=== PATIENT | male | born 1970 | race Caucasian/White ===

== ENCOUNTER 2023-07-03 20:42 | Outpatient (CLI) | payer MEDICARE, MEDICAID, SELFPAY | END 2023-07-03 20:43 | disposition home or self-care (01) | LOC: SLEEP 20:43 | PROVIDERS: PCP Family Medicine; Visit Provider Internal Medicine | DX: G47.10 Hypersomnia, unspecified (principal); G25.81 Restless legs syndrome | CPT/HCPCS: 95810 ==

== ENCOUNTER 2024-10-17 08:25 | Outpatient (CLI) | payer MEDICARE, MEDICAID, SELFPAY ==
--- NOTE | 2024-10-17 09:28 | P.ANES_ITS ---
Anesthesia Charges Start Date/Time Anesthesia Start Date: 10/17/24 Anesthesia Start Time: 08:53 Stop Date/Time Anesthesia Stop Date: 10/17/24 Anesthesia Stop Time: 09:24 Coding CPT Codes CPT Codes: ANES LWR INTST SCR COLSC - 21614 ([id number]) P3 - PATIENT W/SEVERE SYS DISEASE, QK - POWER SYSTEM ENGINEER 2-4 CNCRNT ANES PROC, QX - PLASTICS FABRICATOR OR WELDER SVC W/ MD MED DIRECTION
--- NOTE | 2024-10-17 09:28 | W.ANESCHARGE ---
Anesthesia Charges Start Date/Time Anesthesia Start Date: 10/17/24 Anesthesia Start Time: 08:53 Stop Date/Time Anesthesia Stop Date: 10/17/24 Anesthesia Stop Time: 09:24 Coding CPT Codes CPT Codes: ANES LWR INTST SCR COLSC - 06821 ([id number]) P3 - PATIENT W/SEVERE SYS DISEASE, QK - DOUBLE END CHUCKING MACHINE OPERATOR 2-4 CNCRNT ANES PROC, QX - ENGRAVER HAND SOFT METALS SVC W/ MD MED DIRECTION
--- NOTE | 2024-10-17 09:30 | P.ANES_ITS ---
Anesthesia Charges Start Date/Time Anesthesia Start Date: 10/17/24 Anesthesia Start Time: 08:53 Stop Date/Time Anesthesia Stop Date: 10/17/24 Anesthesia Stop Time: 09:24 Coding CPT Codes CPT Codes: ANES LWR INTST SCR COLSC - 09588 ([id number]) QK - OPTICAL GOODS DRILLING MACHINE OPERATOR 2-4 CNCRNT ANES PROC, QX - SILVER MINER SVC W/ MED DIRECTION, P3 - PATIENT W/SEVERE SYS DISEASE
--- NOTE | 2024-10-17 09:30 | W.ANESCHARGE ---
Anesthesia Charges Start Date/Time Anesthesia Start Date: 10/17/24 Anesthesia Start Time: 08:53 Stop Date/Time Anesthesia Stop Date: 10/17/24 Anesthesia Stop Time: 09:24 Coding CPT Codes CPT Codes: ANES LWR INTST SCR COLSC - 24087 ([id number]) QK - ELASTIC TAPE INSERTER 2-4 CNCRNT ANES PROC, QX - STRATEGIC ACCOUNTS MANAGER SVC W/ MED DIRECTION, P3 - PATIENT W/SEVERE SYS DISEASE
== END 2024-10-17 08:26 | disposition home or self-care (01) ==
LOC: OP CLINIC 08:25
PROVIDERS: PCP Family Medicine; Visit Provider Internal Medicine Gastroenterology
DX: Z12.11 Encounter for screening for malignant neoplasm of colon (principal); Z86.0101 Personal history of adenomatous and serrated colon polyps
CPT/HCPCS: 00812; 45378; J2704